=== PATIENT | female | born 1975 | race Caucasian/White ===

== ENCOUNTER 2019-09-18 02:09 | Emergency (ER) | payer OTHER ==
[~2019-09-18] VITALS: Ht 172.7 cm; Wt 80.7 kg
[~2019-09-18 02:09] MED LIST: LEVOTHYROXINE100 MCG PO; MOTRIN IB200 MG PO; OXYCODON-ACETA1 EAC2 PO
[2019-09-18] MEDS ORDERED: MECLIZINE HCL25 MG PO (03:56)
== END 2019-09-18 04:09 | disposition home or self-care (01) ==
LOC: ED 02:09
DX: H81.20 Vestibular neuronitis, unspecified ear (principal); E03.9 Hypothyroidism, unspecified; Z79.899 Other long term (current) drug therapy
CPT/HCPCS: 80048; 83735; 85025; 99284